=== PATIENT | female | born 1965 | race Caucasian/White ===

== ENCOUNTER → 2020-01-07 | Outpatient (CLI) | payer BC, OTHER | END | disposition home or self-care (01) | LOC: CFH 08:03 | PROVIDERS: ATTEND Family Medicine | DX: K76.0 Fatty (change of) liver, not elsewhere classified (principal); N60.01 Solitary cyst of right breast; K76.89 Other specified diseases of liver; R10.11 Right upper quadrant pain; N63.0 Unspecified lump in unspecified breast | CPT/HCPCS: 76642; 76700; 77066; G0279; 77063 ==